=== PATIENT | female | born 1990 | race Caucasian/White ===

== ENCOUNTER 2019-03-02 15:57 | Emergency (ER) | payer SELFPAY ==
[2019-03-02 17:33] VITALS: BP 106/83; PULSE 90; RESP 16; TEMP 37.3; O2SAT 100; BMI 23.3
[2019-03-02 18:47] LABS: Basophils % 0.5 %; Eosinophils # 0.2 10^3/uL (0.0-0.8); Eosinophils % 2.4 %; Hematocrit 44.1 % (37.0-47.0); Hemoglobin 14.2 g/dL (11.5-15.3); Lymphocytes # 2.2 10^3/uL (0.8-4.8); Lymphocytes % 25.3 %; Mean Corpuscular HGB Conc 32.2 g/dL (30.0-36.0); Mean Corpuscular Hemoglobin 29.5 pg (28.0-34.0); Mean Corpuscular Volume 91.7 fL (81-99); Mean Platelet Volume 11.1 fL (7.4-10.4); Monocytes # 0.5 10^3/uL (0.2-0.9); Monocytes % 5.6 %; Neutrophils # 5.8 10^3/uL (1.8-7.7); Nucleated Red Blood Cells % 0 %; Platelet Count 290 10^3/cmm (130-400); Red Blood Count 4.81 10^6/uL (4.1-5.3); Red Cell Distribution Width 12.5 % (12.1-15.1); White Blood Count 8.7 10^3/uL (4.0-10.0)
[2019-03-02 19:16] LABS: Alanine Aminotransferase 18 U/L (0-33); Albumin Level 4.5 g/dL (3.5-5.2); Alkaline Phosphatase 73 IU/L (35-105); Anion Gap 14.7 (5-19); Aspartate Amino Transferase 26 U/L (0-32); Blood Urea Nitrogen 10 mg/dL (6-20); Calcium 9.6 mg/Dl (8.6-10.0); Carbon Dioxide 26 mmol/L (22-29); Chloride 104 mmol/L (98-107); Globulin 3.3 g/dL (1.3-4.6); Glomerular Filtration Rate 85.4 mL/min (90-130); Glucose 105 mg/dL (74-109); Potassium 3.7 mmol/L (3.5-5.1); Sodium 141 mmol/L (136-145); Total Bilirubin 0.2 mg/dL (0.15-1.2); Total Protein 7.8 g/dL (6.6-8.7)
--- NOTE | 2019-03-02 21:41 | ED_ITS ---
Documented by User: MAYRA Lazar 03/03/19 03:08 HPI - Female Genitourinary General: Chief complaint: Urogenital-Female Stated complaint: abd pain, preg Time Seen by Provider: 03/02/19 21:10 History of Present Illness: HPI Narrative: Patient is a 20-year-old female comes into the ED with vaginal bleeding and cramping. Today she woke up and went to the bathroom and she had a large blood clot in the toilet. She is also having cramping today. Patient states that her last menstrual period started on Thursday, February 27 and lasted til thursday. She had light bleeding. Her bleeding had completely stopped by thursday night and then today she passed the blood clot and still had some light bleeding. She also said her period before this last one was also shorter lasting 2-3 days and very light. Patient says that before these last 2 months her periods usually are 7 days of normal bleeding. Her cycle is usually around 28-30 days. Patient has had 3 children and states that she requested to get a tubal ligation after delivery of her last child, but was unsure if procedure was done. Patient states she has had unprotected sex in the last month and is worried that maybe she got . Denies any fever, chills, nausea, vomiting, chest pain, upper respiratory symptoms, other abdominal pain, hematuria, dysuria, constipation, diarrhea, blood in the stool, other vaginal discharge. Date of Last Menstrual Period: 02/28/19 Review of Systems General: Reports: 10 or more systems reviewed and unremarkable except in HPI and below PFSH ED PFSH: Statuses (acute, chronic, etc) shown below reflect problem list status as previously entered and may not be historically accurate Social History Smoking and tobacco status: current every day smoker Female Reproductive History: Date of last menstrual period: 02/28/19 Physical Exam Narrative: EXAM NARRATIVE: Patient is a 28-year-old female who appears in no acute distress or pain when I entered the room. Const: COMMON NORMALS: oriented x3 HENMT: COMMON NORMALS: normocephalic HEAD & SCALP: normocephalic MOUTH: oral and palatal mucosa normal THROAT: posterior oropharynx normal and uvula midline Neck/C-Spine: COMMON NORMALS: supple GENERAL: Yes normal visual inspection Resp: COMMON NORMALS: normal respiratory effort, no retractions, no use of accessory muscles and clear to auscultation bilaterally AUSCULTATION: clear to auscultation bilaterally Cardio: COMMON NORMALS: regular rate, regular rhythm, S1 normal heart sound, S2 normal heart sound, no gallops, no clicks and peripheral pulses 2+ throughout RATE: regular rate RHYTHM: regular rhythm HEART SOUNDS: S1 normal, S2 normal and murmur systolic Location: base Intensity: II/ PERIPHERAL PULSES: pulses 2+ throughout GI: COMMON NORMALS: normal to inspection, nondistended, normoactive bowel sounds, soft to palpation and no masses PALPATION: Yes soft and Yes tender (R and L pelvic region) Details: other : COMMON NORMALS: Yes no CVA tenderness BLADDER/KIDNEY EXAM: Yes no CVA tenderness Back/Pelvis: COMMON NORMALS: no CVA tenderness Extremity: COMMON NORMALS: normal to inspection Neuro: COMMON NORMALS: oriented x3 and moves all extremities Skin: COMMON NORMALS: no rashes or lesions noted GENERAL SKIN EXAM: no rashes or lesions noted Course Vital Signs: Vital signs: Vital Signs Temperature 99.1 F 03/02/19 17:33 Pulse Rate 90 03/02/19 17:33 Respiratory Rate 16 03/02/19 17:33 Blood Pressure 106/83 03/02/19 17:33 Pulse Oximetry 100 03/02/19 17:33 MDM - Female Lab Data: Labs: Lab Results 03/02/19 03/02/19 03/02/19 Range/Units 18:20 18:20 19:32 WBC 8.7 (4.0-10.0) 10^3/ uL RBC 4.81 (4.1-5.3) 10^6/u L Hgb 14.2 (11.5-15.3) g/dL Hct 44.1 (37.0-47.0) % MCV 91.7 (81-99) fL MCH 29.5 (28.0-34.0) pg MCHC 32.2 (30.0-36.0) g/dL RDW 12.5 (12.1-15.1) % Plt Count 290 (130-400) 10^3/c mm MPV 11.1 H (7.4-10.4) fL Neut % (Auto) 66.0 % Lymph % (Auto) 25.3 % Saunders % (Auto) 5.6 % Eos % (Auto) 2.4 % Baso % (Auto) 0.5 % Neut # (Auto) 5.8 (1.8-7.7) 10^3/u L Lymph # (Auto) 2.2 (0.8-4.8) 10^3/u L Saunders # (Auto) 0.5 (0.2-0.9) 10^3/u L Eos # (Auto) 0.2 (0.0-0.8) 10^3/u L Baso # (Auto) 0.0 (0.0-0.1) 10^3/u L Nucleated RBC % (a uto) 0 % Nucleated RBCs # 0.0 /100WBC Sodium 141 (136-145) mmol/L Potassium 3.7 (3.5-5.1) mmol/L Chloride 104 (98-107) mmol/L Carbon Dioxide 26 (22-29) mmol/L Anion Gap 14.7 (5-19) BUN 10 (6-20) mg/dL Creatinine 0.8 (0.5-0.9) mg/dL GFR Calculation 85.4 L (90-130) mL/min Glucose 105 (74-109) mg/dL Calcium 9.6 (8.6-10.0) mg/Dl Total Bilirubin 0.2 (0.15-1.2) mg/dL AST 26 (0-32) U/L ALT 18 (0-33) U/L Alkaline Phosphata se 73 (35-105) IU/L Total Protein 7.8 (6.6-8.7) g/dL Albumin 4.5 (3.5-5.2) g/dL Globulin 3.3 (1.3-4.6) g/dL Ser , Debi i-Qnt 0.50 mIU/mL Urine Color Yellow (Yellow) Urine Appearance Clear (CLEAR) Urine pH 6.5 (5-7) Ur Specific Gravit y 1.015 (1.005-1.030) Urine Protein Neg (Negative) Urine Glucose (UA) Norm (Normal) Urine Ketones Negative (Negative) Urine Occult Blood 2+ H (Negative) Urine Nitrate Negative (Negative) Urine Bilirubin Neg (NEGATIVE) Urine Urobilinogen Norm (Negative) mg/dL Ur Leukocyte Kierra ase Negative (Negative) Urine RBC 5-10 H (0-2) /hpf Urine WBC 0-4 H (0-5) /hpf Ur Squamous Epith Cells 10-15 H (0-5) Amorphous Sediment Not Reportable Urine Bacteria 1+ H (NONE) Imaging Data: US: Radiologist's impression: US tech-No tissue seen. minimal fluid in the [place]. Discharge Plan Discharge Patient Disposition: Home, Self-Care Clinical Impression: Abnormal bleeding in menstrual cycle Condition: Stable Discharge Orders: Discharge Order (Routine); Ordered 03/03/19 Ordered By: Edward Arguello Referrals: Erica Faulkner MD [Family Provider] - Discharge Diet: Regular Discharge Activity: Resume usual activity Activity Restrictions/Additional Instructions: Follow-up with primary care doctor in 7 days for reevaluation. Drink plenty of fluids and take Tylenol or ibuprofen for pain or cramping. Return to the ED if bleeding significantly worsens he started to develop a fever, nausea and vomiting. 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 [employer] Documented by User: Yomaira Bernard 03/05/19 19:55 HPI - Female Genitourinary General: Chief complaint: Urogenital-Female Stated complaint: abd pain, preg Time Seen by Provider: 03/02/19 21:10 [facility] PFSH: Statuses (acute, chronic, etc) shown below reflect problem list status as previously entered and may not be historically accurate Social History Smoking and tobacco status: current every day smoker Course Vital Signs: Vital signs: Vital Signs Temperature 99.1 F 03/02/19 17:33 Pulse Rate 90 03/02/19 17:33 Respiratory Rate 16 03/02/19 17:33 Blood Pressure 106/83 03/02/19 17:33 Pulse Oximetry 100 03/02/19 17:33 MDM - Female Lab Data: Labs: Lab Results 03/02/19 03/02/19 03/02/19 Range/Units 18:20 18:20 19:32 WBC 8.7 (4.0-10.0) 10^3/ uL RBC 4.81 (4.1-5.3) 10^6/u L Hgb 14.2 (11.5-15.3) g/dL Hct 44.1 (37.0-47.0) % MCV 91.7 (81-99) fL MCH 29.5 (28.0-34.0) pg MCHC 32.2 (30.0-36.0) g/dL RDW 12.5 (12.1-15.1) % Plt Count 290 (130-400) 10^3/c mm MPV 11.1 H (7.4-10.4) fL Neut % (Auto) 66.0 % Lymph % (Auto) 25.3 % Saunders % (Auto) 5.6 % Eos % (Auto) 2.4 % Baso % (Auto) 0.5 % Neut # (Auto) 5.8 (1.8-7.7) 10^3/u L Lymph # (Auto) 2.2 (0.8-4.8) 10^3/u L Saunders # (Auto) 0.5 (0.2-0.9) 10^3/u L Eos # (Auto) 0.2 (0.0-0.8) 10^3/u L Baso # (Auto) 0.0 (0.0-0.1) 10^3/u L Nucleated RBC % (a uto) 0 % Nucleated RBCs # 0.0 /100WBC Sodium 141 (136-145) mmol/L Potassium 3.7 (3.5-5.1) mmol/L Chloride 104 (98-107) mmol/L Carbon Dioxide 26 (22-29) mmol/L Anion Gap 14.7 (5-19) BUN 10 (6-20) mg/dL Creatinine 0.8 (0.5-0.9) mg/dL GFR Calculation 85.4 L (90-130) mL/min Glucose 105 (74-109) mg/dL Calcium 9.6 (8.6-10.0) mg/Dl Total Bilirubin 0.2 (0.15-1.2) mg/dL AST 26 (0-32) U/L ALT 18 (0-33) U/L Alkaline Phosphata se 73 (35-105) IU/L Total Protein 7.8 (6.6-8.7) g/dL Albumin 4.5 (3.5-5.2) g/dL Globulin 3.3 (1.3-4.6) g/dL Ser , Debi i-Qnt 0.50 mIU/mL Urine Color Yellow (Yellow) Urine Appearance Clear (CLEAR) Urine pH 6.5 (5-7) Ur Specific Gravit y 1.015 (1.005-1.030) Urine Protein Neg (Negative) Urine Glucose (UA) Norm (Normal) Urine Ketones Negative (Negative) Urine Occult Blood 2+ H (Negative) Urine Nitrate Negative (Negative) Urine Bilirubin Neg (NEGATIVE) Urine Urobilinogen Norm (Negative) mg/dL Ur Leukocyte Kierra ase Negative (Negative) Urine RBC 5-10 H (0-2) /hpf Urine WBC 0-4 H (0-5) /hpf Ur Squamous Epith Cells 10-15 H (0-5) Amorphous Sediment Not Reportable Urine Bacteria 1+ H (NONE) Discharge Plan Discharge Patient Disposition: Home, Self-Care Clinical Impression: Abnormal bleeding in menstrual cycle Condition: Stable Discharge Orders: Discharge Order (Routine); Ordered 03/03/19 Ordered By: Edward Arguello Referrals: Erica Faulkner MD [Family Provider] - Discharge Diet: Regular Discharge Activity: Resume usual activity Activity Restrictions/Additional Instructions: Follow-up with primary care doctor in 7 days for reevaluation. Drink plenty of fluids and take Tylenol or ibuprofen for pain or cramping. Return to the ED if bleeding significantly worsens he started to develop a fever, nausea and vomiting. Discharge Date/Time: 03/03/19 00:14 Coding Level of Care Code ED Recreation Attendant Supervisor for Ann Hernandez
[2019-03-02 22:09] LABS: Bilirubin Urine Neg (NEGATIVE); Blood Urine 2+ (Negative); Glucose Urine UA Norm (Normal); Ketones Urine Negative (Negative); Leukocyte Esterase Urine Negative (Negative); Nitrate Urine Negative (Negative); Protein Urine Neg (Negative); Specific Gravity, Urine 1.015 (1.005-1.030); Urine Appearance Clear (CLEAR); Urine Color Yellow (Yellow); Urobilinogen Urine Norm (Negative); pH Urine 6.5 (5-7)
[2019-03-02 22:10] LABS: Add Urine Microscopic? YES
[2019-03-02 22:13] LABS: Bacteria Urine 1+; WBC Urine 0-4 /hpf (0-5)
--- NOTE | 2019-03-02 22:36 | US_ITS ---
WS: [id number] TRANSABDOMINAL PELVIC AND TRANSVAGINAL PELVIC ULTRASOUND HISTORY: Vaginal discharge-Blood clots COMPARISON: 01/08/2018 Uterus: 7.5 cm x 3.7 cm x 3.1 cm. Normal size anteverted uterus. Small nabothian cyst at the cervix. Echogenicity of the myometrium is normal. Endometrium: 0.2 cm. Normal homogeneity. Right ovary: 2.8 cm x 2.8 cm x 2.3 cm. Normal size ovary with several small follicles. Normal vascula rity. Left ovary: 2.7 cm x 1.7 cm x 1.4 cm. Normal size ovary with small follicles and normal vascularity. No free fluid. US/US pelvic with transvaginal IMPRESSION: Normal pelvic ultrasound.
[2019-03-02] MEDS: acetaminophen 500 mg Tablet PO (23:10)
== END 2019-03-03 00:14 | disposition home or self-care (01) ==
PROVIDERS: Emergency Medicine; Emergency Provider Physician Assistant; Family Provider Family Medicine
DX: N92.5 Other specified irregular menstruation (principal); F17.210 Nicotine dependence, cigarettes, uncomplicated
CPT/HCPCS: 36415; 76830; 76856; 80053; 81003; 84702; 85025; 99282; 99283

== ENCOUNTER 2022-04-09 21:23 | Emergency (ER) | payer SELFPAY ==
[2022-04-09 21:29] VITALS: BP 134/96; PULSE 107; RESP 16; TEMP 36.4; O2SAT 98
--- NOTE | 2022-04-09 21:40 | XRR_ITS ---
PROCEDURE INFORMATION: Exam: XR Left Foot Exam date and time: 04/09/2022 10:08 PM Age: 31 years old Clinical indication: Pain; Heel; Left; Additional info: Foreign body TECHNIQUE: Imaging protocol: Radiologic exam of the left foot. Views: 3 or more views. COMPARISON: No relevant prior studies available. FINDINGS: Bones/joints: Normal. Soft tissues: Normal. XR/XR foot LT min 3V* [id number] IMPRESSION: No acute findings. Negative for radiodense foreign body.
--- NOTE | 2022-04-09 21:41 | ED_ITS ---
HPI - Extremity Problem General: Chief complaint: Extremity Injury, Lower Stated complaint: Left Heal has toothpick stuck in it Time Seen by Provider: 04/09/22 21:33 History of Present Illness: 31-year-old female comes in for evaluation of injury to the heel of the left foot. Patient reports she was jumping up and down when she landed on a toothpick. Patient believes she removed the full piece of toothpick but come in for evaluation. Patient does not remember her last tetanus shot. Patient has allergy to penicillin but denies any other chronic medical problems. Associated symptoms: Deny chest pain or fever(s) Review of Systems Const: Denies: fever(s) Eyes: Denies: change in vision ENMT: Denies: throat pain Card: Denies: chest pain Resp: Denies: dyspnea Musc: Reports: extremity pain Skin/Breast: Reports: new lesions PFS ED PFSH: Social History Smoking and tobacco status: current every day smoker Physical Exam Const: COMMON NORMALS: alert HENMT: COMMON NORMALS: normocephalic HEAD & SCALP: normocephalic Neck/C-Spine: COMMON NORMALS: full ROM Resp: COMMON NORMALS: normal respiratory effort Cardio: COMMON NORMALS: regular rate RATE: regular rate Back/Pelvis: COMMON NORMALS: thoracic and lumbar spine normal to inspection Extremity: COMMON NORMALS: full ROM LEFT LOWER EXTREMITY: Yes foot & digits (Puncture wound to the left heel, no obvious foreign body.) Neuro: SENSORIUM/ORIENTATION: Yes alert Skin: COMMON NORMALS: turgor normal GENERAL SKIN EXAM: turgor normal TRAUMA: puncture (Left heel, clean) Course Vital Signs: Vital signs: Vital Signs Temperature 97.6 F 04/09/22 21:29 Pulse Rate 107 H 04/09/22 21:29 Respiratory Rate 16 04/09/22 21:29 Blood Pressure 134/96 04/09/22 21:29 Pulse Oximetry 98 04/09/22 21:29 Oxygen Delivery Me thod 04/09/22 21:29 MDM - Extremity (Nontraumatic) Medical Decision Making Patient came in for evaluation of injury to the left foot. Patient stepped on a toothpick and wanted to make sure there was no residual foreign body. On exam there was a puncture wound to the heel of the left foot with no obvious foreign body. Differential diagnosis includes but not limited to fracture, foreign body, puncture wound, need for prophylaxis tetanus. X-ray of the foot noted no signs of residual foreign body. Reviewed exam with patient with recommendations for treatment and follow-up. Patient reported understanding and agreed to plan. Lab Data Radiology Impressions Foot X-Ray 04/09/22 21:40 IMPRESSION: No acute findings. Negative for radiodense foreign body. Discharge Plan Discharge Patient Disposition: Home Clinical Impression: Puncture wound of foot Qualifiers: Encounter type: initial encounter Laterality: left Qualified Code(s): S91.332A - Puncture wound without foreign body, left foot, initial encounter Condition: Stable Prescriptions: New bacitracin 500 unit/gram ointment 1 applic topical BID Qty: 14 0RF Discharge Orders: Discharge ED (Routine); Ordered 04/09/22 Ordered By: Chaim Cox Discharge Diet: Usual diet Discharge Activity: Increase activity as tolerated Patient Instructions: Puncture Wound in the Foot (ED) Activity Restrictions/Additional Instructions: Clean wound twice a day with soapy water. Apply antibiotic ointment and cover with Band-Aid. Follow-up with primary care as needed. Return to ER for worsening symptoms such as high fever greater than 100.4, increasing redness and swelling of the foot, or new concerns. Coding Level of Care Code ED Merchandising Representative for Ann Hernandez
[2022-04-09] MEDS: tetanus-dipt-pertussis 0.5 mL SDV IM (22:01)
== END 2022-04-09 22:48 | disposition home or self-care (01) ==
PROVIDERS: Emergency Provider Nurse Practitioner Family
DX: S91.332A Puncture wound without foreign body, left foot, initial encounter (principal); F17.210 Nicotine dependence, cigarettes, uncomplicated; W22.8XXA Striking against or struck by other objects, initial encounter; Z23 Encounter for immunization; W26.8XXA Contact with other sharp object(s), not elsewhere classified, initial encounter
CPT/HCPCS: 73630; 90471; 90715; 99283

== ENCOUNTER 2022-05-25 13:59 | Emergency (ER) | payer MEDICAID, SELFPAY ==
[2022-05-25 14:03] VITALS: BP 132/84; PULSE 104; RESP 20; TEMP 36.5; O2SAT 100
--- NOTE | 2022-05-25 14:13 | W.ED.DENTAL ---
HPI - Dental/Oral General: Chief complaint: Dental/Oral Stated complaint: mouth infection Time Seen by Provider: 05/25/22 14:08 Source: patient Mode of arrival: ambulatory Limitations: no limitations History of Present Illness: Patient is a 31-year-old female presents to ED today with complaint of left upper dental pain and left-sided facial swelling. Patient states she has had intermittent pain to her left front tooth for approximately 4 months after sustaining some form of dental trauma to the tooth. She states pain will sometimes flare and then subside on its own. She states yesterday she began noticing some swelling to the left side of her face thus prompting her visit today. Patient is eating, drinking, speaking, and swallowing/controlling saliva normally. She has not been running fevers. No neck pain, stiffness, swelling. No headache. No fevers. Teeth map: 1. Onset (ago): day(s) Duration: intermittent Severity: moderate Relieving factors: nothing Context: history of dental caries, trauma (mechanism) and poor dental care Associated symptoms: Reports no associated symptoms; Denies ear or mastoid pain, fever(s) or odynophagia Treatment prior to arrival: none Review of Systems Const: Denies: fever(s), chills, body aches, fatigue or malaise Eyes: Denies: change in vision, blurry vision, floaters or seeing flashes ENMT: Reports: dental pain; Denies: throat pain, uvular edema, odynophagia, swelling of lips/tongue, oral sores, ear or mastoid pain, nasal discharge, nasal congestion or sinus pain Card: Denies: chest pain GI: Denies: nausea or vomiting Musc: Denies: neck pain Skin/Breast: Denies: rash Neuro: Denies: headache(s) or dizziness [facility] ED PFSH: Social History Smoking and tobacco status: current every day smoker Physical Exam Const: COMMON NORMALS: no acute distress, average body habitus, patient oriented x3, no limitations, alert and well nourished GENERAL APPEARANCE: cooperative ORIENTATION/CONSCIOUSNESS: Yes awake, Yes oriented to person, Yes oriented to place and Yes oriented to time HENMT: COMMON NORMALS: normocephalic, atraumatic and Normal external nose present HEAD & SCALP: normal to inspection, normocephalic and atraumatic FACE & SINUS: other (mild L edema to maxillary region; no obvious abscess formation); no erythema and no fluctuance NOSE: Normal external nose present MOUTH: Normal oral and palatal mucosa present, lip normal, tongue normal and other (floor of mouth is soft/non-elevated; no trismus ) TEETH & GINGIVA: Yes caries TEETH & GINGIVA IMAGES: 1. severe caries THROAT: posterior oropharynx normal, tonsils normal and uvula midline; no uvular edema Eye: GENERAL EYE: appearance normal, both eyes and all related structures Neck/C-Spine: COMMON NORMALS: no lymphadenopathy GENERAL: Yes normal visual inspection, No anterior neck swelling and No submandibular swelling Neuro: COMMON NORMALS: patient oriented x3 and CN's II-XII intact bilaterally SENSORIUM/ORIENTATION: Yes alert, Yes oriented to person, Yes oriented to place and Yes oriented to time Skin: COMMON NORMALS: no rashes or lesions noted GENERAL SKIN EXAM: no rashes or lesions noted Course Vital Signs: Vital signs: Vital Signs Temperature 97.7 F 05/25/22 14:03 Pulse Rate 104 H 05/25/22 14:03 Respiratory Rate 20 H 05/25/22 14:03 Blood Pressure 132/84 05/25/22 14:03 Pulse Oximetry 100 05/25/22 14:03 MDM - Dental/Oral Medical Decision Making Patient will be placed on antibiotics and recommend prompt dental follow-up. Patient verbalized understanding of current treatment plan. Return to ED precautions discussed with patient. Discharge Plan Discharge Patient Disposition: Home Clinical Impression: Dental caries, Toothache, Dental infection Condition: Stable Prescriptions: New clindamycin HCl 300 mg capsule 300 mg PO Q6H 7 Days Qty: 28 0RF No Action bacitracin 500 unit/gram ointment 1 applic topical BID Qty: 14 0RF Discharge Orders: Discharge ED (Routine); Ordered 05/25/22 Ordered By: Zoë Johnson Patient Instructions: Dental Caries (Cavities), Dental Abscess (ED), Toothache (ED) Coding Level of Care Code ED Control Specialist for Ann Hernandez
[2022-05-25] MEDS: clindamycin 150 mg Capsule 300 MG PO (14:31)
[2022-05-25] MEDS: clindamycin 150 mg Capsule 600 MG PO (14:31)
[2022-05-25 14:39] VITALS: BP 128/88; PULSE 87; RESP 16; O2SAT 98
--- NOTE | 2022-05-30 12:47 | DCPLANNER ---
technology program manager called patient due to no primary care physician - no answer at this time
== END 2022-05-25 14:39 | disposition home or self-care (01) ==
PROVIDERS: Emergency Provider Physician Assistant
DX: K02.9 Dental caries, unspecified (principal); K04.7 Periapical abscess without sinus; F17.210 Nicotine dependence, cigarettes, uncomplicated
CPT/HCPCS: 99283

== ENCOUNTER 2023-01-11 18:45 | Emergency (ER) | payer SELFPAY ==
[2023-01-11 18:46] VITALS: BP 134/90; PULSE 85; RESP 18; TEMP 36.6; O2SAT 100; BMI 26.6
--- NOTE | 2023-01-11 18:47 | XRR_ITS ---
PROCEDURE INFORMATION: Exam: XR Right Hip Exam date and time: 01/11/2023 7:26 PM Age: 32 years old Clinical indication: Injury or trauma; Patient HX: RT hip pain post fall TECHNIQUE: Imaging protocol: Radiologic exam of the right hip. Views: 1 view hip with pelvis when performed. COMPARISON: CT abdomen pelvis w con* [id number] 03/22/2018 7:13 AM FINDINGS: Bones/joints: Unremarkable. No acute fracture. Soft tissues: Unremarkable. XR/XR hip RT 2-3V wo/w pel* [id number] IMPRESSION: No acute findings.
--- NOTE | 2023-01-11 19:07 | W.ED.FALL ---
HPI - Fall General: Chief Complaint: Fall Stated Complaint: RIGHT HIP PAIN S/P FALL Time Seen by Provider: 01/11/23 18:47 Source: patient Mode of arrival: ambulatory Limitations: no limitations History of Present Illness: 32-year-old female states that she had tripped on some water and fell onto her right hip. She states she had right hip pain and has not been able to ambulate she rates her pain a 6 out of 10 did receive pain meds in route denies any other injuries denies any headache denies any loss consciousness Associated symptoms-after fall: Denies abdominal pain, chest pain, headache(s) or neck pain Review of Systems Const: Denies: fever(s), chills, body aches or change in appetite ENMT: Denies: throat pain or dental pain Card: Denies: chest pain Resp: Denies: dyspnea GI: Denies: abdominal pain, nausea, vomiting or diarrhea Musc: Reports: extremity pain; Denies: neck pain or back pain Skin/Breast: Denies: rash Neuro: Denies: headache(s) PFSH ED PFSH: Social History Smoking and tobacco/nicotine status: current every day tobacco/nicotine user Female Reproductive History: Date of last menstrual period: 12/25/22 Physical Exam Const: COMMON NORMALS: no acute distress, patient oriented x3 and healthy appearing HENMT: COMMON NORMALS: normocephalic and atraumatic HEAD & SCALP: normocephalic and atraumatic Eye: COMMON NORMALS: Equal, round and reactive pupils present and conjunctivae normal CONJUNCTIVA: Yes conjunctivae normal PUPIL: Yes Equal, round and reactive pupils present Neck/C-Spine: COMMON NORMALS: full ROM and supple Chest: COMMONS NORMALS: normal inspection of the chest Resp: COMMON NORMALS: normal respiratory effort GI: COMMON NORMALS: Normal to inspection, nondistended, normoactive bowel sounds present, Soft to palpation, non-tender and no masses PALPATION: Yes Soft to palpation Extremity: COMMON NORMALS: normal to inspection and full ROM NARRATIVE EXTREMITY EXAM: Some tenderness to palpation of right hip along with pain with range of motion no obvious deformity distal pulses intact Neuro: COMMON NORMALS: patient oriented x3, moves all extremities and no focal motor deficits Psych: COMMON NORMALS: mental status grossly normal, Normal thought process present and cooperative THOUGHT PROCESS: Normal thought process present Skin: COMMON NORMALS: no rashes or lesions noted and no wounds GENERAL SKIN EXAM: no rashes or lesions noted Course Vital Signs: Vital signs: Vital Signs Temperature 97.9 F 01/11/23 18:46 Pulse Rate 85 01/11/23 18:46 Respiratory Rate 18 01/11/23 18:46 Blood Pressure 134/90 01/11/23 18:46 Pulse Oximetry 100 01/11/23 18:46 Oxygen Delivery Me thod Room Air 01/11/23 18:46 MDM - Fall Medical Decision Making Patient presents here with right hip contusion from a fall x-ray here is normal patient stable for discharge she is follow-up PCP and return if worsening. Medical Records I reviewed the patient's medical records. Lab Data I reviewed the patient's lab results. Radiology Impressions Hip/Pelvis X-Ray 01/11/23 18:47 IMPRESSION: No acute findings. XR interpretation done by ED provider, pending radiology final review Discharge Plan Discharge Patient Disposition: Home Clinical Impression: Fall, Contusion of hip Condition: Stable Prescriptions: New Naprosyn 500 mg tablet 500 mg PO BID PRN (Reason: pain) Qty: 20 0RF No Action bacitracin 500 unit/gram ointment 1 applic topical BID Qty: 14 0RF Discharge Orders: Discharge ED (Routine); Ordered 01/11/23 Ordered By: Sarah Lilly Discharge Diet: Advance as tolerated Discharge Activity: Resume usual activity Patient Instructions: Contusion in Adults (ED) Coding Level of Care Code ED Cigarette Carton Sealer for Ann Hernandez
== END 2023-01-11 19:59 | disposition home or self-care (01) ==
PROVIDERS: Emergency Provider Emergency Medicine
DX: S70.01XA Contusion of right hip, initial encounter (principal); Z72.0 Tobacco use; W01.0XXA Fall on same level from slipping, tripping and stumbling without subsequent striking against object, initial encounter
CPT/HCPCS: 73502; 99283

== ENCOUNTER 2024-06-08 17:52 | Emergency (ER) | payer OTHER, SELFPAY ==
[2024-06-08 18:03] VITALS: BP 128/76; PULSE 107; RESP 24; TEMP 36.6; O2SAT 99; BMI 28.3
--- NOTE | 2024-06-08 18:15 | XRR_ITS ---
PROCEDURE INFORMATION: Exam: XR Chest Exam date and time: 06/08/2024 7:14 PM Age: 33 years old Clinical indication: Cough; Additional info: Cough, SOB TECHNIQUE: Imaging protocol: Radiologic exam of the chest. Views: 1 view. COMPARISON: CR XR shoulder LT min 2V* [id number] 06/07/2018 10:24 AM FINDINGS: Lungs: Unremarkable. No consolidation. Pleural spaces: Unremarkable. No pleural effusion. No pneumothorax. Heart/Mediastinum: Unremarkable. No cardiomegaly. Bones/joints: Unremarkable. XR/XR chest 1V portable [id number] IMPRESSION: No acute findings.
[2024-06-08 18:46] LABS: Basophils % 0.3 %; Eosinophils # 0.2 10^3/uL (0.0-0.8); Lymphocytes # 2.8 10^3/uL (0.8-4.8); Lymphocytes % 25.2 %; Mean Corpuscular HGB Conc 34.6 g/dL (30-55); Mean Corpuscular Hemoglobin 32.8 pg (27-33); Mean Corpuscular Volume 94.7 fl (85-98); Mean Platelet Volume 10.2 fL (7.4-10.4); Monocytes # 0.9 10^3/uL (0.2-0.9); Monocytes % 8.1 %; Neutrophils # 7.01 10^3/uL (1.8-7.7); Neutrophils % 63.9 %; Nucleated Red Blood Cells % 0 %; Platelet Count 341 10^3/cmm (157-399); Red Blood Count 4.12 10^6/uL (3.85-5.65); Red Cell Distribution Width 12.2 % (12.1-15.1); White Blood Count 10.96 10^3/uL (3.29-11.43)
[2024-06-08 19:06] LABS: Alanine Aminotransferase 21 U/L (0-33); Alkaline Phosphatase 108 U/L (35-105); Anion Gap 18.6 (5-19); Aspartate Amino Transferase 22 U/L (0-32); Blood Urea Nitrogen 12 mg/dL (6-20); Calcium 9.1 mg/dL (8.5-10.5); Carbon Dioxide 19 mmol/L (22-29); Chloride 104 mmol/L (98-107); Creatinine Clr Calc Pharmacy 117.3767; Globulin 3.4 g/dL (1.3-4.6); Glomerular Filtration Rate 96.4 mL/min (90-130); Glucose 135 mg/dL (65-115); Osmolality Calculated 288 mOsm/kg (285-295); Potassium 3.6 mmol/L (3.5-5.1); Sodium 138 mmol/L (136-145); Total Bilirubin 0.2 mg/dL (0.15-1.2); Total Protein 7.4 g/dL (6.6-8.7)
[2024-06-08 19:46] VITALS: BP 110/68; PULSE 90; O2SAT 100
--- NOTE | 2024-06-08 19:56 | W.ED.URI ---
HPI - URI/Sore Throat General: Chief Complaint: Upper Respiratory Infection Stated Complaint: chest congestion Time Seen by Provider: 06/08/24 19:47 Source: patient Mode of arrival: ambulatory Limitations: no limitations History of Present Illness: Nontoxic 33yo female who presents with 2 weeks of protective cough with congestion. No fevers or chills. Patient states her daughter tested positive influenza a couple weeks ago. MD elicited complaint: cough and sinus pain Related Data Home Medications ?Medication ?Instructions ?Recorded ?Confirmed clindamycin HCl 300 mg capsule 300 mg PO BID 09/29/23 09/29/23 Previous Rx's ?Medication ?Instructions ?Recorded bacitracin 500 unit/gram topical 1 applic topical BID #14 grams 04/09/22 ointment naproxen 500 mg tablet (Naprosyn) 500 mg PO BID PRN pain #20 tabs 01/11/23 hydroxyzine HCl 50 mg tablet 50 mg PO QID PRN anxiety/insomnia 10/02/23 #120 tabs bupropion HCl 150 mg 24 hr tablet, 150 mg PO QAM #30 tabs 12/17/23 extended release gabapentin 300 mg capsule 300 mg PO QID #120 caps 12/17/23 olanzapine 10 mg tablet 10 mg PO .HS #30 tabs 12/17/23 propranolol 20 mg tablet 20 mg PO BID PRN anxiety #60 tabs 12/17/23 topiramate 50 mg capsule,extended 50 mg PO .HS #30 caps 12/17/23 release 24 hr azithromycin 250 mg tablet See Rx Instructions PO .COMPLEX #6 06/08/24 (Zithromax Z-Antonio) tabs Allergies Allergy/AdvReac Type Severity Reaction Status Date / Time Penicillins Allergy ALGY-Swell Verified 06/08/24 18:06 Lip/Tongue/Throat Review of Systems Const: Reports: body aches, fatigue and malaise Resp: Reports: productive cough PFSH ED PFSH: Medical History (Updated 06/08/24 @ 20:01 by Ja Otto MD) Psychiatric care Social History Smoking and tobacco/nicotine status: current every day tobacco/nicotine user Physical Exam Const: COMMON NORMALS: no acute distress, average body habitus, alert and well nourished GENERAL APPEARANCE: cooperative ORIENTATION/CONSCIOUSNESS: Yes awake OTHER: Well-appearing 33-year-old female in no acute distress HENMT: COMMON NORMALS: normocephalic and atraumatic HEAD & SCALP: normocephalic and atraumatic FACE & SINUS: normal facial exam MOUTH: Normal oral and palatal mucosa present and tongue normal THROAT: posterior oropharynx normal Eye: COMMON NORMALS: EOMs intact bilaterally and conjunctivae normal CONJUNCTIVA: Yes conjunctivae normal Neck/C-Spine: GENERAL: Yes normal visual inspection Resp: COMMON NORMALS: normal respiratory effort, No retractions and No use of accessory muscles Cardio: COMMON NORMALS: regular rhythm and Peripheral pulses 2+ throughout RHYTHM: regular rhythm PERIPHERAL PULSES: Peripheral pulses 2+ throughout GI: COMMON NORMALS: Soft to palpation and non-tender PALPATION: Yes Soft to palpation Extremity: COMMON NORMALS: full ROM and no pedal edema Neuro: COMMON NORMALS: no focal motor deficits SENSORIUM/ORIENTATION: Yes alert Skin: COMMON NORMALS: no rashes or lesions noted GENERAL SKIN EXAM: no rashes or lesions noted Course Vital Signs: Vital signs: Vital Signs Temperature 98 F 06/08/24 18:03 Pulse Rate 90 06/08/24 19:46 Respiratory Rate 24 H 06/08/24 18:03 Blood Pressure 110/68 06/08/24 19:46 Pulse Oximetry 100 06/08/24 19:46 Oxygen Delivery Me thod Room Air 06/08/24 18:03 MDM - URI/Sore Throat Medical Decision Making Patient is a nontoxic 33-year-old female who presents to the ER with complaint of approximately 2 weeks of productive cough and congestion with generalized malaise. Her family member did test positive for influenza recently. Patient has unremarkable labs including CBC and CMP. Chest x-ray without any obvious consolidation or pneumonia. Given her duration of productive cough and malaise for now 2 weeks think it is reasonable to go ahead and treat her for bronchitis as she is a smoker. We discussed risk and benefits of this and she was in complete agreement with this. I will go ahead and prescribe her azithromycin. She will take [id number] Mucinex and will follow-up with her primary care provider. Differential Diagnosis Likely upper respiratory infection, sinusitis, viral infection, bronchitis, influenza and pharyngitis Lab Data I reviewed the patient's lab results. No acute lab abnormalities. 06/08/24 18:34 06/08/24 18:34 Radiology Impressions Chest X-Ray 06/08/24 18:15 IMPRESSION: No acute findings. Laboratory Results WBC 10.96 10^3/uL (3.29-11.43) 06/08/24 18:34 RBC 4.12 10^6/uL (3.85-5.65) 06/08/24 18:34 Hgb 13.50 g/dL (11.27-16.99) 06/08/24 18:34 Hct 39.0 % (36-47) 06/08/24 18:34 MCV 94.7 fl (85-98) 06/08/24 18:34 MCH 32.8 pg (27-33) 06/08/24 18:34 MCHC 34.6 g/dL (30-55) 06/08/24 18:34 RDW 12.2 % (12.1-15.1) 06/08/24 18:34 Plt Count 341 10^3/cmm (157-399) 06/08/24 18:34 MPV 10.2 fL (7.4-10.4) 06/08/24 18:34 Neut % (Auto) 63.9 % 06/08/24 18:34 Lymph % (Auto) 25.2 % 06/08/24 18:34 [place] % (Auto) 8.1 % 06/08/24 18:34 Eos % (Auto) 2.0 % 06/08/24 18:34 Baso % (Auto) 0.3 % 06/08/24 18:34 Neut # (Auto) 7.01 10^3/uL (1.8-7.7) 06/08/24 18:34 Lymph # (Auto) 2.8 10^3/uL (0.8-4.8) 06/08/24 18:34 [place] # (Auto) 0.9 10^3/uL (0.2-0.9) 06/08/24 18:34 Eos # (Auto) 0.2 10^3/uL (0.0-0.8) 06/08/24 18:34 Baso # (Auto) 0.0 10^3/uL (0.0-0.1) 06/08/24 18:34 Nucleated RBC % (auto) 0 % 06/08/24 18:34 Nucleated RBCs # 0.0 /100WBC 06/08/24 18:34 Sodium 138 mmol/L (136-145) 06/08/24 18:34 Potassium 3.6 mmol/L (3.5-5.1) 06/08/24 18:34 Chloride 104 mmol/L (98-107) 06/08/24 18:34 Carbon Dioxide 19 mmol/L (22-29) L 06/08/24 18:34 Anion Gap 18.6 (5-19) 06/08/24 18:34 BUN 12 mg/dL (6-20) 06/08/24 18:34 Creatinine 0.7 mg/dL (0.5-0.9) 06/08/24 18:34 GFR Calculation 96.4 mL/min (90-130) 06/08/24 18:34 Glucose 135 mg/dL (65-115) H 06/08/24 18:34 Calculated Osmolality 288 mOsm/kg (285-295) 06/08/24 18:34 Calcium 9.1 mg/dL (8.5-10.5) 06/08/24 18:34 Total Bilirubin 0.2 mg/dL (0.15-1.2) 06/08/24 18:34 AST 22 U/L (0-32) 06/08/24 18:34 ALT 21 U/L (0-33) 06/08/24 18:34 Alkaline Phosphatase 108 U/L (35-105) H 06/08/24 18:34 Total Protein 7.4 g/dL (6.6-8.7) 06/08/24 18:34 Albumin 4.0 g/dL (3.5-5.2) 06/08/24 18:34 Globulin 3.4 g/dL (1.3-4.6) 06/08/24 18:34 All radiology interpretation(s) finalized by discharge Discharge Plan Discharge Patient Disposition: Home Clinical Impression: Bronchitis Condition: Stable Prescriptions: New azithromycin [Zithromax Z-Antonio] 250 mg tablet See Rx Instructions .ROUTE .COMPLEX Qty: 6 0RF Rx Instructions: For 250 mg dose pack: take 500 mg today (day 1), then 250 mg for 4 days (days 2-5) No Action clindamycin HCl 300 mg capsule 300 mg PO BID hydroxyzine HCl 50 mg tablet 50 mg PO QID PRN (Reason: anxiety/insomnia) Qty: 120 1RF bupropion HCl 150 mg tablet extended release 24 hr 150 mg PO QAM Qty: 30 1RF gabapentin 300 mg capsule 300 mg PO QID Qty: 120 1RF olanzapine 10 mg tablet 10 mg PO .HS Qty: 30 1RF propranolol 20 mg tablet 20 mg PO BID PRN (Reason: anxiety) Qty: 60 1RF topiramate 50 mg capsule,extended release 24hr 50 mg PO .HS Qty: 30 1RF bacitracin 500 unit/gram ointment 1 applic topical BID Qty: 14 0RF Naprosyn 500 mg tablet 500 mg PO BID PRN (Reason: pain) Qty: 20 0RF Discharge Orders: Discharge ED (Routine); Ordered 06/08/24 Ordered By: Ja Otto Discharge Diet: Usual diet Discharge Activity: Increase activity as tolerated Patient Instructions: Acute Bronchitis (ED), Pain Management Activity Restrictions/Additional Instructions: Take all medication as directed. Drink plenty of fluids to stay hydrated. Take [id number] Mucinex as discussed. Follow-up with your primary care provider for recheck next week. Return for any new or worsening symptoms or any other concerns. Print Language: [place] Coding Level of Care Code ED Switchboard Troubleshooter for Ann Hernandez
[2024-06-08 20:07] VITALS: BP 110/72; PULSE 105; O2SAT 100
== END 2024-06-08 20:10 | disposition home or self-care (01) ==
PROVIDERS: Emergency Provider Student in an Organized Health Care Education/Training Program
DX: J40 Bronchitis, not specified as acute or chronic (principal); Z72.0 Tobacco use
CPT/HCPCS: 36415; 71045; 80053; 85025; 99284

== ENCOUNTER 2024-12-05 11:06 | Emergency (ER) | payer OTHER, MEDICAID, SELFPAY ==
[2024-12-05 11:13] VITALS: PULSE 102; RESP 16; TEMP 36.7; O2SAT 100; BMI 29.0
[2024-12-05 11:15] VITALS: BP 117/80
[2024-12-05] MEDS: HYDROcodone-acetaminophen 7.5-325 mg Tablet 1 TAB PO (12:02)
[2024-12-05 12:08] VITALS: BP 127/80; PULSE 92; O2SAT 100
--- NOTE | 2024-12-05 12:19 | ED_ITS ---
HPI - Dental/Oral General: Chief complaint: Dental/Oral Stated complaint: R side of face swellen Time Seen by Provider: 12/05/24 11:25 Source: patient Mode of arrival: ambulatory Limitations: no limitations History of Present Illness: Patient is a 33-year-old female who presents emergency department complaining of right upper dental pain and facial swelling. States that she has an abscess has been dealing with pain in her tooth for greater than 6 months, but has never seen dentist. States that the pain has gotten worse over the past 24 hours. No airway compromise, no periorbital concerns, no fevers, no other symptoms of systemic illness. No trauma reported. MD Complaint: tooth pain Onset (ago): month(s) (worsening over prior 24 hours) Duration: constant Severity: severe Context: history of dental caries and poor dental care Associated symptoms: Denies ear or mastoid pain or fever(s) Related Data Home Medications ?Medication ?Instructions ?Recorded ?Confirmed clindamycin HCl 300 mg capsule 300 mg PO BID 09/29/23 09/29/23 Previous Rx's ?Medication ?Instructions ?Recorded bacitracin 500 unit/gram topical 1 applic topical BID #14 grams 04/09/22 ointment naproxen 500 mg tablet (Naprosyn) 500 mg PO BID PRN pa in #20 tabs 01/11/23 hydroxyzine HCl 50 mg tablet 50 mg PO QID PRN anxiety/ insomnia 10/02/23 #120 tabs bupropion HCl 150 mg 24 hr tablet, 150 mg PO QAM #30 t abs 12/17/23 extended release gabapentin 300 mg capsule 300 mg PO QID #120 caps 11/18 03/11 olanzapine 10 mg tablet 10 mg PO .HS #30 tabs propranolol 20 mg tablet 20 mg PO BID PRN anxiety #60 tabs 12/17/23 topiramate 50 mg capsule,extended 50 mg PO .HS #30 cap s 12/17/23 release 24 hr azithromycin 250 mg tablet See Rx Instructions PO .COM PLEX #6 06/08/24 (Zithromax Z-Antonio) tabs clindamycin HCl 300 mg capsule 300 mg PO BID 7 days #1 4 caps 12/05/24 Allergies Allergy/AdvReac Type Severity Reaction Status Date / Time Penicillins Allergy ALGY-Swell Verified 06/08/24 18:06 Lip/Tongue/Throat Review of Systems General: Reports: 10 or more systems reviewed and unremarkable except in HPI and below Const: Denies: fever(s), chills or fatigue Eyes: Denies: change in vision ENMT: Reports: dental pain and sinus pain (w/ swelling); Denies: throat pain, ear or mastoid pain or nasal discharge Card: Denies: chest pain, palpitations, swelling of feet/ankles or lightheadedness Resp: Denies: dyspnea, productive cough or wheezing GI: Denies: abdominal pain, nausea, vomiting, diarrhea or constipation : Denies: flank pain, difficulty voiding, dysuria or urinary frequency Musc: Denies: neck pain, back pain or joint pain Skin/Breast: Denies: rash Neuro: Denies: headache(s), numbness in extremities or weakness in extremities PFSH ED PFSH: Social History Smoking and tobacco/nicotine status: current every day tobacco/nicotine user Physical Exam Const: COMMON NORMALS: no acute distress and no limitations GENERAL APPEARANCE: cooperative, comfortable and well developed ORIENTATION/CONSCIOUSNESS: Yes awake HENMT: COMMON NORMALS: normocephalic, atraumatic and hearing grossly normal bilaterally HEAD & SCALP: normocephalic and atraumatic OTHER: Overall poor dentition with multiple restorations and caries. Tenderness and gingival edema to the right upper dentition, concerning for abscess. Tender to palpation to right face where there is associated edema. Eye: COMMON NORMALS: Equal, round and reactive pupils present, EOMs intact bilaterally and conjunctivae normal CONJUNCTIVA: Yes conjunctivae normal PUPIL: Yes Equal, round and reactive pupils present Neck/C-Spine: COMMON NORMALS: full ROM and supple Resp: COMMON NORMALS: normal respiratory effort, No retractions and No use of accessory muscles Extremity: COMMON NORMALS: normal to inspection, full ROM and capillary refill normal Psych: COMMON NORMALS: mental status grossly normal and Normal thought process present THOUGHT PROCESS: Normal thought process present Skin: COMMON NORMALS: no rashes or lesions noted GENERAL SKIN EXAM: no rashes or lesions noted Course Vital Signs: Vital signs: Vital Signs Temperature 98.1 F 12/05/24 11:13 Pulse Rate 92 12/05/24 12:08 Respiratory Rate 16 12/05/24 11:13 Blood Pressure 127/80 10/20/25 12:08 Pulse Oximetry 100 12/05/24 12:08 Oxygen Delivery Me thod Room Air 12/05/24 11:13 MDM - Dental/Oral Medical Decision Making Clinical signs and symptoms of a dental abscess, with no airway compromise and no signs of systemic illness. Will treat with Augmentin, she is given handout for dental follow-up and Decadron given here in the ED for the swelling and pain. Gave her return precautions. No radiology studies performed this visit Discharge Plan Discharge Patient Disposition: Home Clinical Impression: Dental abscess Condition: Stable Prescriptions: New clindamycin HCl 300 mg capsule 300 mg PO BID 7 Days Qty: 14 0RF No Action clindamycin HCl 300 mg capsule 300 mg PO BID hydroxyzine HCl 50 mg tablet 50 mg PO QID PRN (Reason: anxiety/insomnia) Qty: 120 1RF bupropion HCl 150 mg tablet extended release 24 hr 150 mg PO QAM Qty: 30 1RF gabapentin 300 mg capsule 300 mg PO QID Qty: 120 1RF olanzapine 10 mg tablet 10 mg PO .HS Qty: 30 1RF propranolol 20 mg tablet 20 mg PO BID PRN (Reason: anxiety) Qty: 60 1RF topiramate 50 mg capsule,extended release 24hr 50 mg PO .HS Qty: 30 1RF bacitracin 500 unit/gram ointment 1 applic topical BID Qty: 14 0RF Naprosyn 500 mg tablet 500 mg PO BID PRN (Reason: pain) Qty: 20 0RF azithromycin [Zithromax Z-Antonio] 250 mg tablet See Rx Instructions .ROUTE .COMPLEX Qty: 6 0RF Rx Instructions: For 250 mg dose pack: take 500 mg today (day 1), then 250 mg for 4 days (days 2-5) Discharge Orders: Discharge ED (Routine); Ordered 12/05/24 Ordered By: Myron Francis Patient Instructions: Patient Portal & Campbell Instructions Activity Restrictions/Additional Instructions: Dental Abscess Discharge You have been diagnosed with a dental abscess. This is an infection around your tooth that can cause pain and swelling. You received treatment in the emergency department, including a steroid injection and [place] for pain. You have also been given resources for dental follow-up. Antibiotic Instructions: - Take clindamycin 300 mg by mouth twice daily for one week or as directed. - Finish the full course unless your symptoms resolve sooner; if symptoms resolve, you may stop antibiotics 24 hours after they resolve. - If you miss a dose, take it as soon as you remember. Do not double up on doses. Important Side Effects: - Clindamycin can cause diarrhea, including a serious infection called Clostridioides difficile. - Call your doctor right away if you develop fever, abdominal pain, or three or more loose stools in a day. Pain Management: - Use non-opioid pain relievers like ibuprofen (Advil, Motrin) or acetaminophen (Tylenol) as first-line options, unless contraindicated. These are usually more effective and safer than opioids. - Only use [place] (hydrocodone/acetaminophen) if pain is severe and not controlled by other medications, and for the shortest time possible. Dental Follow-Up: - It is very important to see a dentist as soon as possible for definitive treatment, such as drainage or root canal therapy. Antibiotics alone will not cure the abscess. - If you cannot get a dental appointment within 1?2 days, call your dentist or primary care provider. When to Seek Help: - Call your dentist or return to the emergency department if you notice: - Increased swelling, redness, or pain - Fever or chills - Difficulty swallowing or breathing - Pus draining from the area - No improvement after 2?3 days of antibiotics General Advice: - Drink plenty of fluids and rest. - Avoid chewing on the affected side of your mouth. - Maintain good oral hygiene, but avoid brushing directly over the swollen area if it is painful. Why follow these instructions? Prompt dental care and monitoring are essential to prevent complications. Antibiotics are used when there is evidence of spreading infection or systemic symptoms, but definitive dental treatment is the woo to recovery. Print Language: Citizen Of [place] Coding Level of Care Code ED Pediatric Audiologist for Ann Hernandez
== END 2024-12-05 12:12 | disposition home or self-care (01) ==
PROVIDERS: Emergency Provider Physician Assistant
DX: K04.7 Periapical abscess without sinus (principal); Z72.0 Tobacco use
CPT/HCPCS: 96372; 99284; J1100; J9999

== ENCOUNTER 2025-01-03 13:13 | Emergency (ER) | payer OTHER, MEDICAID, SELFPAY ==
[2025-01-03 13:40] VITALS: BP 136/73; PULSE 88; RESP 18; TEMP 36.6; O2SAT 99
--- NOTE | 2025-01-03 13:42 | ED_ITS ---
HPI - Dental/Oral 2 General: Chief complaint: Dental/Oral Stated complaint: Toothache Time Seen by Provider: 01/03/25 13:42 Source: patient Mode of arrival: ambulatory Limitations: no limitations History of Present Illness: Patient is a 34-year-old female here for concern of a toothache/possible infection. Patient states she was seen here recently for a different tooth and placed on clindamycin. Patient states she has not followed up with a dentist. She just realized recently that she has Medicaid and is hoping she can find a dentist that takes this. Patient states she has had severe pain to her left front tooth over the past several days. She does report significant decay here. She has noticed some localized gum swelling but has not noticed any facial swelling. No headache or visual changes. No fevers. MD Complaint: tooth pain Teeth map: 1. Onset (ago): day(s) Duration: constant Severity: severe Relieving factors: nothing Exacerbating factors: nothing Context: history of dental caries and poor dental care Associated symptoms: Reports no associated symptoms; Denies ear or mastoid pain, fever(s) or odynophagia Treatment prior to arrival: oral analgesic (Aleve-states this is not helping ) Related Data Previous Rx's ?Medication ?Instructions ?Recorded bacitracin 500 unit/gram topical 1 applic topical BID #14 grams 04/09/22 ointment naproxen 500 mg tablet (Naprosyn) 500 mg PO BID PRN pa in #20 tabs 01/11/23 hydroxyzine HCl 50 mg tablet 50 mg PO QID PRN anxiety/ insomnia 10/02/23 #120 tabs bupropion HCl 150 mg 24 hr tablet, 150 mg PO QAM #30 t abs 12/17/23 extended release gabapentin 300 mg capsule 300 mg PO QID #120 caps 11/18 03/11 olanzapine 10 mg tablet 10 mg PO .HS #30 tabs propranolol 20 mg tablet 20 mg PO BID PRN anxiety #60 tabs 12/17/23 topiramate 50 mg capsule,extended 50 mg PO .HS #30 cap s 12/17/23 release 24 hr azithromycin 250 mg tablet See Rx Instructions PO .COM PLEX #6 06/08/24 (Zithromax Z-Antonio) tabs clindamycin HCl 300 mg capsule 300 mg PO Q6H 7 days #2 8 caps 01/03/25 Allergies Allergy/AdvReac Type Severity Reaction Status Date / Time Penicillins Allergy EIL-Colette Verified 06/08/24 18:06 Lip/Tongue/Throat Review of Systems 2 Const: Denies: fever(s), chills, body aches, fatigue or malaise Eyes: Denies: change in vision, blurry vision or photophobia ENMT: Reports: dental pain; Denies: throat pain, uvular edema, enlarged tonsils, odynophagia, hoarseness, swelling of lips/tongue, oral sores, bleeding gums, dry mouth, ear or mastoid pain or sinus pain GI: Denies: nausea or vomiting Musc: Denies: neck pain Neuro: Denies: headache(s) PFSH ED 2 PFSH: Social History Smoking and tobacco/nicotine status: current every day tobacco/nicotine user Physical Exam 2 Const: COMMON NORMALS: no acute distress, average body habitus, patient oriented x3, no limitations, alert and well nourished GENERAL APPEARANCE: c ooperative HENMT: FACE & SINUS: normal facial exam and sinuses nontender; no sinus tenderness, no erythema, no edema and no fluctuance MOUTH: Normal oral and palatal mucosa present, lip normal, tongue normal and Normal salivary glands and ducts present TEETH & GINGIVA: Yes caries and Yes poor dentition TEETH & GINGIVA IMAGES: 1. significant decay; gingival inflammation; no obvious drainable dental abscess THROAT: posterior oropharynx normal and tonsils normal; no uvular edema Eye: GENERAL EYE: appearance normal, both eyes and all related structures Neck/C-Spine: COMMON NORMALS: negative for no lymphadenopathy GENERAL: Yes normal visual inspection Resp: COMMON NORMALS: normal respiratory effort and clear to auscultation bilaterally AUSCULTATION: clear to auscultation bilaterally Cardio: COMMON NORMALS: regular rate and regular rhythm RATE: regular rate RHYTHM: regular rhythm Neuro: MEERA COMA SCALE: document GCS findings Beecher coma scale eye opening: Spontaneous Meera coma scale verbal response: Orientated Beecher coma scale motor response: Obey commands Meera coma scale total score: 15 COMMON NORMALS: patient oriented x3 and CN's II-XII intact bilaterally S ENSORIUM/ORIENTATION: Yes alert Course 2 Vital Signs: Vital signs: Vital Signs Temperature 97.9 F 01/03/25 13:40 Pulse Rate 88 01/03/25 13:40 Respiratory Rate 18 01/03/25 13:40 Blood Pressure 136/73 01/03/25 13:40 Pulse Oximetry 99 01/03/25 13:40 Oxygen Delivery Me thod Room Air 01/03/25 13:40 MDM - Dental/Oral Medical Decision Making Patient needs to follow-up with a dentist. She was given dental resources and I did tell her about [facility] that does take adult Medicaid I believe. She has an allergy to penicillins. Will place her back on a round of Clindamycin. Return to ED precautions given regarding worsening pain, swelling, severe headache or visual changes, fevers, or any other concerns she may have. Differential Diagnosis Likely gingival abscess, dental caries, toothache, dental abscess and fracture of tooth Medical Records I reviewed the patient's medical records. No radiology studies performed this visit Discharge Plan Discharge Patient Disposition: Home Clinical Impression: Toothache, Dental caries Condition: Stable Prescriptions: New clindamycin HCl 300 mg capsule 300 mg PO Q6H 7 Days Qty: 28 0RF Discontinued clindamycin HCl 300 mg capsule 300 mg PO BID No Action hydroxyzine HCl 50 mg tablet 50 mg PO QID PRN (Reason: anxiety/insomnia) Qty: 120 1RF bupropion HCl 150 mg tablet extended release 24 hr 150 mg PO QAM Qty: 30 1RF gabapentin 300 mg capsule 300 mg PO QID Qty: 120 1RF olanzapine 10 mg tablet 10 mg PO .HS Qty: 30 1RF propranolol 20 mg tablet 20 mg PO BID PRN (Reason: anxiety) Qty: 60 1RF topiramate 50 mg capsule,extended release 24hr 50 mg PO .HS Qty: 30 1RF bacitracin 500 unit/gram ointment 1 applic topical BID Qty: 14 0RF Naprosyn 500 mg tablet 500 mg PO BID PRN (Reason: pain) Qty: 20 0RF azithromycin [Zithromax Z-Antonio] 250 mg tablet See Rx Instructions .ROUTE .COMPLEX Qty: 6 0RF Rx Instructions: For 250 mg dose pack: take 500 mg today (day 1), then 250 mg for 4 days (days 2-5) Discharge Orders: Discharge ED (Routine); Ordered 01/03/25 Ordered By: Zoë Johnson Patient Instructions: Toothache (ED), Patient Portal & Campbell Instructions Print Language: [place]ish Coding Level of Care Code ED Diamond Sizer for Ann Hernandez
[2025-01-03] MEDS: HYDROcodone-acetaminophen 5-325 mg Tablet 1 TAB PO (13:54)
== END 2025-01-03 13:56 | disposition home or self-care (01) ==
PROVIDERS: Emergency Provider Physician Assistant
DX: K08.89 Other specified disorders of teeth and supporting structures (principal); K02.9 Dental caries, unspecified; Z72.0 Tobacco use
CPT/HCPCS: 99283; J9999